=== PATIENT | female | born 1965 ===

== ENCOUNTER 2019-07-02 07:48 | Day surgery (SDC) | payer OTHER ==
[~2019-07-02 07:48] MED LIST: ADULT ASPIRIN R81 MG PO; LOSARTAN POTASS50 MG PO
[2019-07-02] MEDS ORDERED: MORGIDOX100 MG PO (13:26)
[2019-07-02] MEDS ORDERED: Tylenol #3 PO (13:26)
== END 2019-07-02 16:18 | disposition home or self-care (01) ==
LOC: CIR.AMB 07:48
DX: N84.0 Polyp of corpus uteri (principal); D25.0 Submucous leiomyoma of uterus; G89.18 Other acute postprocedural pain